=== PATIENT | female | born 1955 | race Caucasian/White ===

== ENCOUNTER → 2021-04-06 | Outpatient (CLI) | payer MEDICARE ==
[~2021-04-06] MED LIST: ASPI81CH PO; ASPI81EC PO; METO50 PO; MULVITMIND PO; NAPR220 PO; NAPR500 PO; OLME20-12. PO; OXYACE5T PO; Omeprazole20 M1 PO; Vitamin D3 PO; [UNRECOGNIZED DRUG - CODE] PO; [UNRECOGNIZED DRUG - OTHER]; [UNRECOGNIZED DRUG - OTHER]
== END | disposition home or self-care (01) ==
LOC: LAB SHORT 11:07 → LAB 11:07 → LAB FUT 03-28 09:05 → EDSTATUS 03-28 09:05
DX: N20.0 Calculus of kidney (principal)
CPT/HCPCS: 81050

== ENCOUNTER 2022-01-31 06:37 | Day surgery (SDC) | payer MEDICARE ==
[~2022-01-31] VITALS: Ht 170.2 cm; Wt 110.3 kg
[2022-01-31] MEDS ORDERED: SYSTANE BALANCE10 ML (07:03)
[2022-01-31] MEDS ORDERED: CETI5 (07:03)
[2022-01-31] MEDS ORDERED: PROBIOTIC1 EA13 (07:03)
[2022-01-31] MEDS ORDERED: LOSA25 (07:03)
[2022-01-31] MEDS ORDERED: ERGO400 (07:03)
--- NOTE | 2022-01-31 07:35 | NUR ---
01/31/22 0735 Barbara Evans TWO ATTEMPTS AT IV. FIRST ATTEMPT AT IV BY MA IN RIGHT WRIST UNABLE TO ADVANCE. SECOND ATTEMPT AT IV IN RIGHT AC BY MA SUCCESSFUL.
--- NOTE | 2022-01-31 09:07 | NUR ---
01/31/22 0907 Luz Corea 3ML NS USED TO ELEVATE SIGMOID POLYP
== END 2022-01-31 09:38 | disposition home or self-care (01) ==
LOC: ORSCSDS 06:37
PROVIDERS: Student in an Organized Health Care Education/Training Program
PROC: 0DBH8ZX Excision of Cecum, Via Natural or Artificial Opening Endoscopic, Diagnostic (ICD-10-PCS; principal; 2022-01-31 08:00)
PROC: 0DBL8ZX Excision of Transverse Colon, Via Natural or Artificial Opening Endoscopic, Diagnostic (ICD-10-PCS; principal; 2022-01-31 08:00)
PROC: 0DBP8ZX Excision of Rectum, Via Natural or Artificial Opening Endoscopic, Diagnostic (ICD-10-PCS; principal; 2022-01-31 08:00)
PROC: 3E0H8KZ Introduction of Other Diagnostic Substance into Lower GI, Via Natural or Artificial Opening Endoscopic (ICD-10-PCS; principal; 2022-01-31 08:00)
PROC: 0DBK8ZX Excision of Ascending Colon, Via Natural or Artificial Opening Endoscopic, Diagnostic (ICD-10-PCS; principal; 2022-01-31 08:00)
PROC: 0DBN8ZX Excision of Sigmoid Colon, Via Natural or Artificial Opening Endoscopic, Diagnostic (ICD-10-PCS; principal; 2022-01-31 08:00)
DX: Z12.11 Encounter for screening for malignant neoplasm of colon (principal); Z86.010 Personal history of colon polyps; D12.5 Benign neoplasm of sigmoid colon; D12.3 Benign neoplasm of transverse colon; D12.0 Benign neoplasm of cecum; D12.2 Benign neoplasm of ascending colon; K62.1 Rectal polyp; K57.30 Diverticulosis of large intestine without perforation or abscess without bleeding; K64.4 Residual hemorrhoidal skin tags; I10 Essential (primary) hypertension; K21.9 Gastro-esophageal reflux disease without esophagitis; Z79.899 Other long term (current) drug therapy; E66.9 Obesity, unspecified; Z68.38 Body mass index [BMI] 38.0-38.9, adult
CPT/HCPCS: 88305; J2704; J7120

== ENCOUNTER 2022-05-22 10:43 | Day surgery (SDC) | payer MEDICARE ==
[~2022-05-22] VITALS: Ht 170.2 cm; Wt 110.3 kg
[~2022-05-22 10:43] MED LIST changes: +CETI5; +ERGO400; +LOSA25; +PROBIOTIC1 EA13; +SYSTANE BALANCE10 ML
== END 2022-05-22 12:39 | disposition home or self-care (01) ==
LOC: ORSCSDS 10:43
PROVIDERS: Student in an Organized Health Care Education/Training Program
PROC: 0DBP8ZX Excision of Rectum, Via Natural or Artificial Opening Endoscopic, Diagnostic (ICD-10-PCS; principal; 2022-05-22 12:00)
PROC: 0DBN8ZX Excision of Sigmoid Colon, Via Natural or Artificial Opening Endoscopic, Diagnostic (ICD-10-PCS; principal; 2022-05-22 12:00)
DX: Z12.11 Encounter for screening for malignant neoplasm of colon (principal); Z86.010 Personal history of colon polyps; K63.5 Polyp of colon; K62.1 Rectal polyp; K64.4 Residual hemorrhoidal skin tags; K57.30 Diverticulosis of large intestine without perforation or abscess without bleeding; I10 Essential (primary) hypertension; K21.9 Gastro-esophageal reflux disease without esophagitis; E66.01 Morbid (severe) obesity due to excess calories; Z68.38 Body mass index [BMI] 38.0-38.9, adult; Z79.899 Other long term (current) drug therapy
CPT/HCPCS: 88305; J2704; J7120

== ENCOUNTER 2023-12-20 08:53 | Day surgery (SDC) | payer MEDICARE ==
[~2023-12-20] VITALS: Ht 165.1 cm; Wt 102.0 kg
[2023-12-20] VITALS (11 sets, daily range): BP systolic 100–149; BP diastolic 50–78
[~2023-12-20 08:53] MED LIST changes: +Acetaminophen 500 MG Tab PO SCH; -CETI5; +CETI5 PO; +CeFAZolin Sodium 2,000 MG in NS 100 ML IV SCH; +Chlorhexidine Mouth Care 15 ML UDC MT SCH; +LIDO700A20 TOP; -LOSA25; +LOSA25 PO; +Lactated Ringer's 1,000 ML IV SCH; +OMEP20ER PO; +OXYC5 PO; -Omeprazole20 M1 PO; +OxyCODONE HCL 10 MG TABCR PO SCH; -PROBIOTIC1 EA13; +PROBIOTIC1 EA13 PO; +Ropivacaine 0.5% HCl/Pf 123.125 MG,EPINEPHrine HCL 0.25 MG,Ketorolac Tromethamine 15 MG... INFIL SCH; -SYSTANE BALANCE10 ML; +SYSTANE BALANCE10 ML BOTHEYES; +Tranexamic Acid 100 ML IV SCH; +VITAMIN D310 MC4 PO; +Vancomycin HCL 1,000 MG in NS 250 ML IV SCH; +XALATAN2.5 ML BOTHEYES
--- NOTE | 2023-12-20 09:56 | NUR ---
Ambulatory in Day Surgery History, Chart, Medications and Allergies reviewed before start of procedure. Pre-Op teaching done. Pt verbalizes understanding.
[2023-12-20] MEDS ORDERED: Lactated Ringer's 1,000 ML IV SCH (10:25)
[2023-12-20] MEDS ORDERED: Promethazine HCl 25 MG Tab PO PRN (10:25)
[2023-12-20] MEDS ORDERED: Metoclopramide HCl 5MG / ML 2ML Vial IV PRN (10:25)
[2023-12-20] MEDS ORDERED: OxyCODONE HCL 5 MG TAB PO PRN ×2 (10:25)
[2023-12-20] MEDS ORDERED: Magnesium Hydroxide Conc 10 ML UDC PO PRN (10:25)
[2023-12-20] MEDS ORDERED: Ondansetron HCl 2 MG / ML 2ML Vial IV PRN (10:25)
[2023-12-20] MEDS ORDERED: DiphenhydrAMINE HCL 25 MG Cap PO PRN (10:30)
[2023-12-20] MEDS ORDERED: Bisacodyl 10 MG Supp PR PRN (10:30)
[2023-12-20] MEDS ORDERED: HYDROmorphone HCl/Pf 1MG SYR IV PRN (10:35)
[2023-12-20] MEDS ORDERED: propofoL 100 ML IV ONE (10:38)
--- NOTE | 2023-12-20 13:09 | NUR ---
ARRIVED FROM PACU VIA BED, AWAKE, A&OX4, DENIES ANY PAIN AT THIS TIME, UNABLE TO MOVE LE'S AT THIS TIME, LUNGS CLEAR T/O, HRR, ACTIVE BT'S X4 ABD SOFT, POLAR PACK TO L KNEE, CLEAR LIQUIDS GIVEN, CONT. TO MONITOR FOR ANY CHANGES.
[2023-12-20] MEDS ORDERED: Acetaminophen 500 MG Tab PO SCH (16:00)
--- NOTE | 2023-12-20 16:57 | NUR ---
SUMMARY S/P L TKA BY DR. BALDERAS TODAY, DILAUDID AND PERCOCET FOR PAIN CONTROL, OOB WITH PT BUT STILL HAD SOME TRACE WEAKNESS ON LE'S PER THERAPIST, TOLERATED REGULAR FOOD WELL, VSS, NO ACUTE CHANGES THIS SHIFT.
[2023-12-20] MEDS ORDERED: Losartan Potassium 25 MG Tab PO SCH (18:00)
[2023-12-20] MEDS ORDERED: Ketorolac Tromethamine 15mg Vial IV SCH (18:00)
[2023-12-20] MEDS ORDERED: CeFAZolin Sodium 2,000 MG in NS 100 ML IV SCH (18:30)
[2023-12-20] MEDS ORDERED: Docusate Sodium 100 MG Cap PO SCH (21:00)
[2023-12-20] MEDS ORDERED: Latanoprost 0.005% Opth Soln 2.5 ML BOTHEYES SCH (21:00)
[2023-12-21 02:06] VITALS: BP 124/66
[2023-12-21 05:15] LABS: BASOPHILS ABSOLUTE AUTO 0.01 K/mm3 (0.00-0.23); BASOPHILS PERCENT AUTO 0 % (0-2); EOSINOPHILS PERCENT AUTO 0 % (0-6); Hematocrit 34.9 % (33.0-51.0); Hemoglobin 11.5 g/dL (11.5-16.0); IMMATURE GRAN PERCENT AUTO 1 % (0-1); LYMPHOCYTES ABSOLUTE AUTO 1.21 K/mm3 (0.84-5.20); LYMPHOCYTES PERCENT AUTO 6 % (21-46); MONOCYTES ABSOLUTE AUTO 0.91 K/mm3 (0.16-1.47); MONOCYTES PERCENT AUTO 5 % (4-13); Mean Corpuscular HGB 31.3 pg (26.0-34.0); Mean Corpuscular Volume 95 fL (80-100); Mean Platelet Volume 10.4 fL (9.1-12.4); NEUTROPHILS PERCENT AUTO 89 % (41-73); Platelet Count 276 K/mm3 (150-400); RDW Coefficient Variation 12.8 % (11.7-14.2); RDW Standard Deviation 44.1 fL (35.1-46.3); Red Blood Cell Count 3.68 M/mm3 (3.80-5.20); White Blood Cell Count 19.43 K/mm3 (4.00-11.30)
[2023-12-21 06:00] LABS: Bun/Creatinine Ratio 27.8 (12.0-20.0); Calcium, Blood 8.3 mg/dL (8.5-10.1); Creatinine, Blood 0.58 mg/dL (0.40-1.00); Potassium, Blood 4.3 mmol/L (3.5-5.5)
--- NOTE | 2023-12-21 07:41 | NUR ---
SHIFT SUMMARY NOC. PT POD 1 FOR LEFT TOTAL KNEE. PT A/O X4. AQUACEL WITH CHRISTEN WRAP C/D/I. PT MEDICATED FOR PAIN WITH OXY 10MG AND DILAUDID FOR BREAKTHROUGH. PT VOIDING URINE AND TOLERATING PO. PT AMBULATES TO BATHROOM WITH SBA, FWW, AND GAITBELT. PT RESTED WITH EYES CLOSED AND CALL LIGHT IN REACH.
[2023-12-21 07:44] VITALS: BP 101/49
[2023-12-21] MEDS ORDERED: Aspir 8181 MG PO (08:47)
[2023-12-21] MEDS ORDERED: Aspirin 81 MG Chew PO SCH (09:00)
[2023-12-21] MEDS ORDERED: Loratadine 10 MG Tab PO SCH (09:00)
[2023-12-21] MEDS ORDERED: Cholecalciferol 400 unit Tab PO SCH (09:00)
--- NOTE | 2023-12-21 10:52 | NUR ---
SHIFT/DISCHARGE NOTE: PATIENT A/OX4, PLEASANT AND COOPERATIVE c CARE. PATIENT REPORTS PAIN 3/10 TO L KNEE, MEDICATED c PRN PAIN MEDS c GOOD EFFECT. PATIENT AMBULATED c PT TODAY OUT IN THE AMEZQUITA, TOLERATED WELL. PATIENT DENIES CP/PRESSURE, SOB, N/V AND DIZZINESS. PATIENT TOLERATING PO INTAKE, CONTINENT OF BOWEL/BLADDER, AMBULATES TO BATHROOM c SBA/FWW. PATIENT HAS NO COMPLAINTS OR DENIES NEW CONCERNED THIS SHIFT. VITAL SIGNS REVIEWED. PIV TO RAC DC'D. PATIENT DISCHARGE HOME. DISCHARGE INSTRUCTIONS PACKET GIVEN TO PATIENT. EDUCATE PATIENT REGARDING POST OP SX TO L KNEE, SELF CARE, NEW PRESCRIBED RX AND TO F/U c DR. BALDERAS WITHIN TWO WEEKS. PATIENT VERBALIZED UNDERSTANDING AND NO FURTHER QUESTIONS. RX WAS FAXED TO PATIENT PREFERRED PHARMACY. ALL PATIENT PERSONAL BELONGINGS WERE SENT HOME c THE PATIENT. PATIENT LEFT THE ROOM AT 1025 AND TRANSPORTED VIA WHEELCHAIR BY AIR ROUTE TRAFFIC CONTROLLER TO PATIENT ENTRANCE.
[2023-12-22] MEDS ORDERED: Omeprazole 20 MG CapCR PO SCH (06:00)
== END 2023-12-21 10:30 | disposition home or self-care (01) ==
LOC: ORSCMMR 08:53 → ORD 10:30 → SURS 12:56 → ORSCMMR 12-21 10:30
PROVIDERS: Orthopaedic Surgery
PROC: 0SRD0JA Replacement of Left Knee Joint with Synthetic Substitute, Uncemented, Open Approach (ICD-10-PCS; principal; 2023-12-20 10:30)
DX: M17.12 Unilateral primary osteoarthritis, left knee (principal); I10 Essential (primary) hypertension; K21.9 Gastro-esophageal reflux disease without esophagitis; Z79.899 Other long term (current) drug therapy; Z68.39 Body mass index [BMI] 39.0-39.9, adult
CPT/HCPCS: 36415; 73560-LT; 80048; 85025; 97110; 97116; 97162; A9270; C1713; C1776; J0171; J0690; J0735; J1170; J1885; J2704; J2795; J3370; J7050; J7120

== ENCOUNTER 2024-06-24 08:38 | Day surgery (SDC) | payer MEDICARE ==
[2024-06-24] VITALS (18 sets, daily range): BP systolic 88–145; BP diastolic 40–80
[~2024-06-24] VITALS: Ht 167.6 cm; Wt 107.5 kg
[~2024-06-24 08:38] MED LIST changes: -Acetaminophen 500 MG Tab PO SCH; +Aspir 8181 MG PO; -CeFAZolin Sodium 2,000 MG in NS 100 ML IV SCH; -Chlorhexidine Mouth Care 15 ML UDC MT SCH; -Lactated Ringer's 1,000 ML IV SCH; -OxyCODONE HCL 10 MG TABCR PO SCH; -Ropivacaine 0.5% HCl/Pf 123.125 MG,EPINEPHrine HCL 0.25 MG,Ketorolac Tromethamine 15 MG... INFIL SCH; -Tranexamic Acid 100 ML IV SCH; -Vancomycin HCL 1,000 MG in NS 250 ML IV SCH
[2024-06-24] MEDS ORDERED: Tranexamic Acid 1,000 MG in NS 100 ML IV SCH (08:45)
[2024-06-24] MEDS ORDERED: Lactated Ringer's 1,000 ML IV SCH ×2 (08:45→09:45)
[2024-06-24] MEDS ORDERED: OxyCODONE HCL 10 MG TABCR PO SCH (08:45)
[2024-06-24] MEDS ORDERED: Ropivacaine 0.5% HCl/Pf 123.125 MG,EPINEPHrine HCL 0.25 MG,Ketorolac Tromethamine 15 MG... INFIL SCH (08:45)
[2024-06-24] MEDS ORDERED: CeFAZolin Sodium 2,000 MG in NS 100 ML IV SCH ×2 (08:45→19:30)
[2024-06-24] MEDS ORDERED: Chlorhexidine Mouth Care 15 ML UDC MT SCH (08:45)
[2024-06-24] MEDS ORDERED: Acetaminophen 500 MG Tab PO SCH ×2 (08:45→16:00)
[2024-06-24] MEDS ORDERED: CeFAZolin Sodium 2,000 MG VIAL ONE (09:13)
[2024-06-24] MEDS ORDERED: propofoL 20 ML IV ONE ×3 (09:28→12:21)
[2024-06-24] MEDS ORDERED: FentaNYL Citrate 50 MCG/ML 2 ML Injection ONE (09:28)
--- NOTE | 2024-06-24 09:32 | NUR ---
Ambulatory in Day Surgery. History, Chart, Medications and Allergies reviewed before start of procedure. Lungs clear T/O to Auscultation. Patient confirms NPO status and agrees with scheduled surgery. Pre-Op teaching done. Pt verbalizes understanding. PT BELONGINGS PLACED UNDERNEATH GURNEY FOR SAFEKEEPING. PT GLASSES TAKEN TO PACU FOR SAFEKEEPING.
[2024-06-24] MEDS ORDERED: Promethazine HCl 25 MG Tab PO PRN (09:40)
[2024-06-24] MEDS ORDERED: Peg 400/Hypromellose/Glycerin 15 DROP/ML BTL BOTHEYES PRN (09:40)
[2024-06-24] MEDS ORDERED: DiphenhydrAMINE HCL 25 MG Cap PO PRN (09:45)
[2024-06-24] MEDS ORDERED: Magnesium Hydroxide Conc 10 ML UDC PO PRN (09:45)
[2024-06-24] MEDS ORDERED: Ondansetron HCl 2 MG / ML 2ML Vial IV PRN (09:45)
[2024-06-24] MEDS ORDERED: Metoclopramide HCl 5MG / ML 2ML Vial IV PRN (09:45)
[2024-06-24] MEDS ORDERED: OxyCODONE HCL 5 MG TAB PO PRN ×2 (09:45)
[2024-06-24] MEDS ORDERED: HYDROmorphone HCl/Pf 1MG SYR IV PRN (09:50)
[2024-06-24] MEDS ORDERED: FLU VACC TS2024-25(6MOS UP)/PF 45 MCG/0.5 ML SYRINGE IM SCH (09:50)
[2024-06-24] MEDS ORDERED: Bisacodyl 10 MG Supp PR PRN (09:50)
[2024-06-24] MEDS ORDERED: Loratadine 10 MG Tab PO PRN (09:55)
--- NOTE | 2024-06-24 11:57 | NUR ---
06/24/24 1157 Xander,Callie SPINAL BLOCK COMPLETED BY UPON ENTRY TO OR.
[2024-06-24] MEDS ORDERED: Ketorolac Tromethamine 15mg Vial IV SCH (12:00)
[2024-06-24] MEDS ORDERED: Tranexamic Acid 100 ML IV ONE (13:52)
--- NOTE | 2024-06-24 14:30 | NUR ---
PT ARRIVED TO RM 221 FROM PACU AT APPROXIMATELY 1405. PT DENIES PAIN. SHE STILL HAS NUMBNESS AND DECREASED MOVEMENT TO BLE R/T SPINAL ANESTHESIA. SPINAL SITE WNL. PT TOLERATING PO. S/O AT THE BEDSIDE. PT EDUCATED TO USE THE CALL LIGHT, CALL LIGHT PLACED WITH REACH.
[2024-06-24] MEDS ORDERED: ASPI81CH PO (15:16)
[2024-06-24] MEDS ORDERED: Losartan Potassium 25 MG Tab PO SCH (18:00)
--- NOTE | 2024-06-24 18:15 | NUR ---
SHIFT SUMMARY PT IS POD#0 FROM R TKA WITH DR. BALDERAS. PAIN HAS BEEN MANAGED WITH OXY, TYLENOL AND TORADOL. PT IS TOLERATING PO. WAITING ON POST-OP VOID. PT USES CALL LIGHT APPROPRIATELY. FAMILY HAVE BEEN PRESENT AT THE BEDSIDE FOR SUPPORT.
[2024-06-24] MEDS ORDERED: Latanoprost 0.005% Opth Soln 2.5 ML BOTHEYES SCH (21:00)
[2024-06-24] MEDS ORDERED: Docusate Sodium 100 MG Cap PO SCH (21:00)
[2024-06-25 03:51] VITALS: BP 110/56
--- NOTE | 2024-06-25 04:25 | NUR ---
SHIFT SUMMARY POD0 RTKA, AQUACEL AND CHRISTEN WRAP C/D/I. VOIDING, PASSING FLATUS. PAIN MANAGED. WORKING WITH PT. TOERATING PO INTAKE. VSS. CALL LIGHT IN REACH.
[2024-06-25 05:17] LABS: BASOPHILS ABSOLUTE AUTO 0.03 K/mm3 (0.00-0.23); BASOPHILS PERCENT AUTO 0 % (0-2); EOSINOPHILS ABSOLUTE AUTO 0.16 K/mm3 (0.00-0.68); EOSINOPHILS PERCENT AUTO 1 % (0-6); Hematocrit 32.3 % (33.0-51.0); Hemoglobin 10.9 g/dL (11.5-16.0); IMMATURE GRAN ABSOLUTE AUTO 0.05 K/mm3 (0.00-0.10); IMMATURE GRAN PERCENT AUTO 0 % (0-1); LYMPHOCYTES ABSOLUTE AUTO 2.85 K/mm3 (0.84-5.20); LYMPHOCYTES PERCENT AUTO 23 % (21-46); MONOCYTES ABSOLUTE AUTO 1.05 K/mm3 (0.16-1.47); MONOCYTES PERCENT AUTO 8 % (4-13); Mean Corpuscular HGB Conc 33.7 g/dL (31.5-36.5); Mean Corpuscular Volume 95 fL (80-100); Mean Platelet Volume 10.4 fL (9.1-12.4); NEUTROPHILS ABSOLUTE AUTO 8.39 K/mm3 (1.96-9.15); NEUTROPHILS PERCENT AUTO 67 % (41-73); Platelet Count 258 K/mm3 (150-400); RDW Coefficient Variation 13.1 % (11.7-14.2); RDW Standard Deviation 45.5 fL (35.1-46.3); Red Blood Cell Count 3.41 M/mm3 (3.80-5.20); White Blood Cell Count 12.53 K/mm3 (4.00-11.30)
[2024-06-25 05:52] LABS: Calcium, Blood 8.5 mg/dL (8.5-10.1); Creatinine, Blood 0.65 mg/dL (0.40-1.00); Potassium, Blood 3.9 mmol/L (3.5-5.5)
[2024-06-25] MEDS ORDERED: Omeprazole 20 MG CapCR PO SCH (06:00)
[2024-06-25 07:59] VITALS: BP 107/78
[2024-06-25] MEDS ORDERED: Aspirin 81 MG Chew PO SCH (09:00)
[2024-06-25] MEDS ORDERED: Cholecalciferol 400 unit Tab PO SCH (09:00)
--- NOTE | 2024-06-25 11:15 | NUR ---
DISCHARGE NOTE PT A/OX4. MADDIE PO INTAKE WELL. PT HAS VOIDED W/O ISSUE. CLEARED BY PHYSICAL THERAPY. ADEQUATE PAIN CONTROL WITH PO MEDS. PT VERBALIZES UNDERSTANDING OF D/C INST AND QUESTIONS ANSWERED. PT TO F/U WITH ORTHO IN 2 WEEKS. SENT HOME WITH EXTRA AQUACEL DRESSINGS. PT ESCORTED TO LOBBY VIA .
== END 2024-06-25 11:30 | disposition home or self-care (01) ==
LOC: ORSCMMR 08:38 → ORD 10:00 → ORSCMMR 10:00 → ORD 11:00 → SURS 14:03 → ORSCMMR 06-25 11:30
PROVIDERS: Orthopaedic Surgery
PROC: 0SRC0J9 Replacement of Right Knee Joint with Synthetic Substitute, Cemented, Open Approach (ICD-10-PCS; principal; 2024-06-24 10:00)
DX: M17.11 Unilateral primary osteoarthritis, right knee (principal); I10 Essential (primary) hypertension; K21.9 Gastro-esophageal reflux disease without esophagitis; E66.01 Morbid (severe) obesity due to excess calories; Z68.38 Body mass index [BMI] 38.0-38.9, adult; Z79.899 Other long term (current) drug therapy; Z96.652 Presence of left artificial knee joint; Z96.642 Presence of left artificial hip joint
CPT/HCPCS: 36415; 73560-RT; 80048; 85025; 97110; 97116; 97161; A9270; C1713; C1776; J0171; J0690; J0735; J1885; J2704; J2795; J3010; J7120